=== PATIENT | female | born 1935 | race Caucasian/White ===

== ENCOUNTER 2023-07-07 15:11 | Emergency (ER) | payer OTHER ==
[2023-07-07 15:38] VITALS: BP 154/76; PULSE 70; RESP 18; TEMP 98.6; BMI 26.4
[2023-07-07] MEDS ORDERED: DIPHTH,PERTUSS(ACELL),TET 0.5 ML DISP.SYRIN IM ONE ×2 (15:50→15:51)
== END 2023-07-07 17:44 | disposition home or self-care (01) ==
LOC: FER 15:11
PROC: 0HQ0XZZ Repair Scalp Skin, External Approach (ICD-10-PCS; principal; 2023-07-07)
PROC: 3E0234Z Introduction of Serum, Toxoid and Vaccine into Muscle, Percutaneous Approach (ICD-10-PCS; 2023-07-07)
DX: S01.01XA Laceration without foreign body of scalp, initial encounter (principal); M25.551 Pain in right hip; W10.9XXA Fall (on) (from) unspecified stairs and steps, initial encounter
CPT/HCPCS: 70450-TC; 73502-TC-RT-FY; 90715; 99284-25

== ENCOUNTER 2023-07-14 11:31 | Emergency (ER) | payer OTHER ==
[2023-07-14 11:38] VITALS: BP 179/78; PULSE 66; RESP 18; TEMP 98.4; BMI 26.4
== END 2023-07-14 11:49 | disposition home or self-care (01) ==
LOC: FER 11:31
DX: Z48.02 Encounter for removal of sutures (principal)
CPT/HCPCS: 99281-25

== ENCOUNTER 2023-09-11 12:48 | Emergency (ER) | payer OTHER ==
[2023-09-11 12:56] VITALS: BP 142/66; PULSE 82; RESP 18; TEMP 100.2; BMI 25.9
[2023-09-11] MEDS ORDERED: ACETAMINOPHEN 325 MG TABLET (FP) PO ONE (13:01)
[2023-09-11] MEDS ORDERED: ACETAMINOPHEN 325 MG TABLET (FP) ONE (13:25)
== END 2023-09-11 13:29 | disposition home or self-care (01) ==
LOC: FER 12:48
DX: R05.9 Cough, unspecified (principal); J06.9 Acute upper respiratory infection, unspecified; Z20.822 Contact with and (suspected) exposure to COVID-19
CPT/HCPCS: 0241U-QW; 71046-TC-FY; 99284-25